=== PATIENT | female | born 1935 | race Hispanic/Latino ===

== ENCOUNTER 2017-12-22 13:00 | Emergency (ER) | payer OTHER ==
[2017-12-22 13:21] VITALS: BMI 23.8
[2017-12-22 13:27] VITALS: BP 158/78; PULSE 90; RESP 17; TEMP 98.6; O2SAT 96
--- NOTE | 2017-12-22 14:25 | RAD ---
PROCEDURE: Radiographs of the right elbow. HISTORY: trauma COMPARISON: No prior. FINDINGS: BONES: Normal. No fracture. JOINTS: Normal. No osteoarthritis. SOFT TISSUES: Normal. JOINT EFFUSION: None. OTHER FINDINGS: None. IMPRESSION: Unremarkable radiographs of the right elbow.
--- NOTE | 2017-12-22 14:30 | RAD ---
PROCEDURE: Radiographs of the Chest and Right Ribs. HISTORY: trauma COMPARISON: None available. TECHNIQUE: Frontal radiograph of the chest and multiple oblique radiographs of the right ribs were obtained. FINDINGS: RIGHT RIBS: Minimally displaced fractures are seen of the right 3rd 4th and 5th ribs. There is no pneumothorax. LUNGS: Clear. PLEURA: No pneumothorax or pleural fluid. CARDIOVASCULAR: Normal sized heart. No pulmonary vascular congestion. OTHER FINDINGS: None. IMPRESSION: Minimally displaced fractures are seen of the right 3rd 4th and 5th ribs. There is no pneumothorax.
--- NOTE | 2017-12-22 15:45 | ED PDOC ---
Arrival/HPI - General Chief Complaint: Medical Clearance Time Seen by Provider: 12/22/17 13:16 Historian: Patient - History of Present Illness Narrative History of Present Illness (Text): 12/22/17 13:25 A 82 year old female, whose past medical history includes COPD, emphysema, and pneumothorax, presents to the emergency department complaining of right rib pain , right elbow pain, and bilateral knee pain s/p injury. Patient reports while shopping, was injured after being hit by load of carts. Patient denies any syncopal episode, LOC, or any other complaints at this time. Also, patient mentions being concerned of puncturing right lung due to past medical history. No PMD Past Medical History - Provider Review Nursing Documentation Reviewed: Yes - Cardiac Hx Hypertension: Yes - Pulmonary Hx Respiratory Disorders: No - Neurological Hx Neurological Disorder: No - HEENT Hx HEENT Disorder: No - Renal Hx Renal Disorder: No - Endocrine/Metabolic Hx Endocrine Disorders: No - Hematological/Oncological Hx Blood Disorders: No - Integumentary Hx Dermatological Disorder: No - Musculoskeletal/Rheumatological Hx Musculoskeletal Disorders: No - Gastrointestinal Hx Gastrointestinal Disorders: No - Genitourinary/Gynecological Hx Genitourinary Disorders: No - Psychiatric Hx Psychophysiologic Disorder: No Hx Substance Use: No Family/Social History - Physician Review Nursing Documentation Reviewed: Yes Family/Social History: No Known Family HX Smoking Status: Never Smoked Hx Alcohol Use: No Hx Substance Use: No Allergies/Home Meds Allergies/Adverse Reactions: Allergies No Known Allergies Allergy (Verified 12/22/17 13:25) Review of Systems - Physician Review All systems were reviewed & negative as marked: Yes - Review of Systems Cardiovascular: absent: Syncope Musculoskeletal: Other (right ribs, right elbow, and b/l knee pain) Neurological: absent: Other (no LOC) Physical Exam Vital Signs Reviewed: Yes Vital Signs Temp Pulse Resp BP Pulse Ox 12/22/17 13:21 98.6 F 90 17 158/78 H 96 Temperature: Afebrile Blood Pressure: Hypertensive Pulse: Regular Respiratory Rate: Normal Appearance: Positive for: Well-Appearing Pain Distress: None Mental Status: Positive for: Alert and Oriented X 3 - Systems Exam Neck: Present: Normal Range of Motion Respiratory/Chest: Present: Decreased Breath Sounds (right side), Other (right chest wall tenderness) Abdomen: No: Tenderness, Distention, Peritoneal Signs Back: Present: Normal Inspection Upper Extremity: Present: Tenderness (right elbow) Lower Extremity: Present: Normal Inspection. No: Edema Neurological: Present: GCS=15, CN II-XII Intact, Speech Normal Skin: Present: Warm, Dry, Normal Color. No: Rashes Psychiatric: Present: Alert, Oriented x 3, Normal Insight, Normal Concentration Medical Decision Making ED Course and Treatment: 12/22/17 13:28 Impression: 82 year old female with right rib pain, right elbow pain, and bilateral knee pain s/p injury. Physical exam shows right chest wall tenderness , decreased breath sounds to right side; and right elbow tenderness. Plan: -- Bilateral Knee X-Ray -- Right Elbow X-Ray -- Right Ribs X-Ray -- Tylenol -- Reassess and disposition Progress Notes: Leaving Against Medical Advice (AMA): The patient is choosing to leave against medical advice. I have personally explained to the patient that choosing to do so may result in permanent bodily harm or . I have discussed at great length that without further evaluation and monitoring there may be unforeseen circumstances and/or deterioration causing permanent bodily harm or as a result of their choice. The patient is alert, oriented, and shows the mental capacity to make clear decisions regarding the patients health care at this time. The patient continues to wish to leave against medical advice. In light of the patients decision to leave against medical advice, follow-up has been arranged and the patient is aware of the importance to following up as instructed. The patient has been advised that they should return to the emergency room immediately if they change their mind at any time, or if their condition begins to change or worsen in any way. Patient refused any further work-up, declines admission, and wishes to leave. 12/22/2017 14:23 Right Elbow X-Ray IMPRESSION: Unremarkable radiographs of the right elbow. Dictator: Valentin Hall MD 12/22/2017 14:28 Right Ribs X-Ray IMPRESSION: Minimally displaced fractures are seen of the right 3rd 4th and 5th ribs. There is no pneumothorax. Dictator: Valentin Hall MD - RAD Interpretation Radiology Orders: 12/22/17 13:27 RIBS RIGHT & PA CHEST [RAD] Stat 12/22/17 13:28 ELBOW RIGHT 3 VIEWS ROUTINE [RAD] Stat KNEES BILATERAL [RAD] Stat - Medication Orders Current Medication Orders: Discontinued Medications Acetaminophen (Tylenol 325mg Tab) 975 mg PO STAT STA Stop: 12/22/17 13:30 Last Admin: 12/22/17 14:09 Dose: Not Given Non-Admin Reason: Patient Refused - Scribe Statement The provider has reviewed the documentation as recorded by the Izaiah Leavitt Provider Scribe Attestation: All medical record entries made by the Scribe were at my direction and personally dictated by me. I have reviewed the chart and agree that the record accurately reflects my personal performance of the history, physical exam, medical decision making, and the department course for this patient. I have also personally directed, reviewed, and agree with the discharge instructions and disposition. Disposition/Present on Arrival - Present on Arrival History of DVT/PE: No History of Uncontrolled Diabetes: No Urinary Catheter: No History of Decub. Ulcer: No History Surgical Site Infection Following: None - Disposition Diagnosis: Rib fracture Disposition: AGAINST MEDICAL ADVICE Discharge Instructions (ExitCare): Rib Fractures in Adults, Leaving Against Medical Advice Additional Instructions: you are refusing admission to the hospital. return to any er with any worsening symptoms or concerns. Prescriptions: Naproxen 500 mg PO BID PRN #14 tablet.dr MOLINA Reason: Pain, Mild (1-3) oxyCODONE/Acetaminophen [Percocet 5/325 mg Tab] 1 ea PO Q6 PRN #10 tab PRN Reason: Pain, Severe (8-10) Referrals: [facility] [Outside] - [place] up with [place] [facility] [place] [facility] [place] - Follow up with primary Mikey No, [Primary Care Provider] - Follow up with primary Frances Daniel MD [Staff Provider] - Follow up with primary Forms: [employer] (Bel[place]ian)
== END 2017-12-22 14:53 | disposition left against medical advice (07) ==
LOC: ED 13:00
DX: S22.41XA Multiple fractures of ribs, right side, initial encounter for closed fracture (principal); W22.8XXA Striking against or struck by other objects, initial encounter; Y92.512 Supermarket, store or market as the place of occurrence of the external cause

== ENCOUNTER 2018-01-04 14:31 | Emergency (ER) | payer SELFPAY ==
[2018-01-04 14:31] VITALS: BMI 23.8
[2018-01-04 14:41] VITALS: RESP 18; TEMP 98.2; O2SAT 95
[2018-01-04 15:30] LABS: BASO # 0.02 K/mm3 (0.0-2.0); BASO % 0.2 % (0.0-3.0); EOS # 0.1 (0.0-0.7); EOS % 0.6 % (1.5-5.0); GRAN # 6.62 (1.4-6.5); GRAN % 74.1 % (50.0-68.0); HEMOGLOBIN 11.7 g/dL (12.0-16.0); LYMPH # 1.6 (1.2-3.4); LYMPH % 18.3 % (22.0-35.0); MEAN CELL VOLUME 94.2 fl (80.0-105.0); MEAN PLATELET VOLUME 11.1 fl (7.0-11.0); MONO # 0.6 (0.1-0.6); MONO % 6.8 % (1.0-6.0); RBC 3.77 10^6/uL (3.5-6.1); RED CELL DISTRIBUTION WIDTH 14.4 % (11.5-14.5); WHITE BLOOD COUNT 8.9 10^3/ul (4.5-11.0)
[2018-01-04 15:40] LABS: BLOOD UREA NITROGEN 24 mg/dL (7-21); CALCIUM 9.1 mg/dL (8.4-10.5); GFR AFRICAN-AMERICAN > 60; GFR NON-AFRICAN AMERICAN > 60
--- NOTE | 2018-01-04 15:44 | ED PDOC ---
Arrival/HPI - General Chief Complaint: High Blood Pressure Time Seen by Provider: 01/04/18 14:44 Historian: Patient - History of Present Illness Narrative History of Present Illness (Text): 01/04/18 14:52 A 82 year old female, whose past medical history includes pneumothorax, anxiety , fluids in legs, and hypertension, presents to the emergency department complaining of high blood pressure today. Patient states she noted her blood pressure was elevated today. Patient reports associated palpitations. Patient states she has not been non-compliant with her hypertension medication. Patient denies any shortness of breath, chest pain, abdominal pain, nausea, vomiting, or any other complaints at this time. No PMD Symptom Onset: Gradual Symptom Course: Unchanged Activities at Onset: Light Context: Home Past Medical History - Provider Review Nursing Documentation Reviewed: Yes - Reproductive Menopause: No - Cardiac Hx Hypertension: Yes - Pulmonary Hx Respiratory Disorders: No - Neurological Hx Neurological Disorder: No - HEENT Hx HEENT Disorder: No - Renal Hx Renal Disorder: No - Endocrine/Metabolic Hx Endocrine Disorders: No - Hematological/Oncological Hx Blood Disorders: No - Integumentary Hx Dermatological Disorder: No - Musculoskeletal/Rheumatological Hx Musculoskeletal Disorders: No - Gastrointestinal Hx Gastrointestinal Disorders: No - Genitourinary/Gynecological Hx Genitourinary Disorders: No - Psychiatric Hx Psychophysiologic Disorder: No Hx Substance Use: No - Anesthesia Hx Anesthesia: No Hx Anesthesia Reactions: No Hx Malignant Hyperthermia: No Family/Social History - Physician Review Nursing Documentation Reviewed: Yes Family/Social History: No Known Family HX Smoking Status: Never Smoked Hx Alcohol Use: No Hx Substance Use: No Allergies/Home Meds Allergies/Adverse Reactions: Allergies No Known Allergies Allergy (Verified 12/22/17 13:25) Home Medications: Home Meds Medication Instructions Recorded Confirmed Candesartan Cilexetil [Atacand] 2 tab PO DAILY 01/04/18 01/04/18 Diazepam [Valium] 10 mg pe PO QID 01/04/18 01/04/18 hydroCHLOROthiazide [Hydrodiuril] 25 mg pe PO DAILY 01/04/18 01/04/18 Review of Systems - Physician Review All systems were reviewed & negative as marked: Yes - Review of Systems Constitutional: absent: Fevers Respiratory: absent: SOB Cardiovascular: Palpitations, Other (+high blood pressure). absent: Chest Pain Gastrointestinal: absent: Abdominal Pain, Vomiting Physical Exam Vital Signs Reviewed: Yes Vital Signs Temp Pulse Resp BP Pulse Ox 01/04/18 15:55 86 18 158/74 H 95 01/04/18 14:39 98.2 F 99 H 18 160/89 H 95 Temperature: Afebrile Blood Pressure: Hypertensive Pulse: Regular Respiratory Rate: Normal Appearance: Positive for: Well-Appearing, Non-Toxic, Comfortable Pain Distress: None Mental Status: Positive for: Alert and Oriented X 3 - Systems Exam Head: Present: Atraumatic, Normocephalic Pupils: Present: PERRL Extroacular Muscles: Present: EOMI Conjunctiva: Present: Normal Mouth: Present: Moist Mucous Membranes Neck: Present: Normal Range of Motion Respiratory/Chest: Present: Clear to Auscultation, Good Air Exchange. No: Respiratory Distress, Accessory Muscle Use Cardiovascular: Present: Regular Rate and Rhythm, Normal S1, S2. No: Murmurs Abdomen: Present: Other (right lower rib tenderness; no crepitus). No: Tenderness, Distention, Peritoneal Signs Upper Extremity: Present: Normal Inspection. No: Cyanosis, Edema Lower Extremity: Present: Normal Inspection. No: Edema Neurological: Present: GCS=15, CN II-XII Intact, Speech Normal Skin: Present: Warm, Dry, Normal Color. No: Rashes Psychiatric: Present: Alert, Oriented x 3, Normal Insight, Normal Concentration Medical Decision Making ED Course and Treatment: 01/04/18 14:56 Impression: 82 year old female with high blood pressure and palpitations. Physical exam shows right lower rib tenderness, no crepitus, no bruising. Differential Diagnosis included but are not limited to: Fracture vs. Pneumothorax Plan: -- EKG -- Right Ribs X-ray -- Labs -- Reassess and disposition Prior Visits: Notes and results from previous visits were reviewed. Patient was last seen in the emergency department on 12/22/2017 for rib fracture injury. Patient left ama. Progress Notes: EKG: Ordered, reviewed, and independently interpreted the EKG. Rate : 77 BPM Rhythm : NSR Interpretation : LVH. Comparison : No previous EKG for comparison. 01/04/2018 16:09 Ribs X-Ray IMPRESSION: healing posterior lateral 3rd, 4th, and right 5th ribs. No new acute fractures are identified. Dictator: Duc Soliz MD - Lab Interpretations Lab Results: 01/04/18 15:20 01/04/18 15:20 Lab Results 01/04/18 15:20: Sodium 142, Potassium 5.0, Chloride 105, Carbon Dioxide 27, Anion Gap 16, BUN 24 H, Creatinine 0.7, Est GFR ( Amer) > 60, Est GFR ( Non-Af Amer) > 60, Random Glucose 134 H, Calcium 9.1, Lactate Dehydrogenase 501 , Total Creatine Kinase 47, Troponin I < 0.01, NT-Pro-B Natriuret Pep 685 H 01/04/18 15:20: WBC 8.9, RBC 3.77, Hgb 11.7 L, Hct 35.5 L, MCV 94.2, MCH 31.0, MCHC 33.0, RDW 14.4, Plt Count 272, MPV 11.1 H, Gran % 74.1 H, Lymph % (Auto) 18.3 L, [place] % (Auto) 6.8 H, Eos % (Auto) 0.6 L, Baso % (Auto) 0.2, Gran # 6.62 H, Lymph # (Auto) 1.6, [place] # (Auto) 0.6, Eos # (Auto) 0.1, Baso # (Auto) 0.02 I have reviewed the lab results: Yes - RAD Interpretation Radiology Orders: 01/04/18 14:56 RIBS RIGHT & PA CHEST [RAD] Stat Helper [employer] Hanging: Radiologist - EKG Interpretation Interpreted by ED Physician: Yes Type: 12 lead EKG - Scribe Statement The provider has reviewed the documentation as recorded by the Izaiah Leavitt Provider Scribe Attestation: All medical record entries made by the Izaiah were at my direction and personally dictated by me. I have reviewed the chart and agree that the record accurately reflects my personal performance of the history, physical exam, medical decision making, and the department course for this patient. I have also personally directed, reviewed, and agree with the discharge instructions and disposition. Disposition/Present on Arrival - Present on Arrival History of DVT/PE: No History of Uncontrolled Diabetes: No Urinary Catheter: No History of Decub. Ulcer: No History Surgical Site Infection Following: None - Disposition Diagnosis: Rib pain on right side Disposition: HOME/ ROUTINE Disposition Time: 16:57 Condition: IMPROVED Discharge Instructions (ExitCare): Chest Pain (ED) Additional Instructions: Ms Richey, thank you for letting us take care of you today. Your provider was Dr. Read. You were treated for Rib Pain. The emergency medical care you received today was directed at your acute symptoms. If you were prescribed any medication, please fill it and take as directed. It may take several days for your symptoms to resolve. Return to the Emergency Department if your symptoms worsen, do not improve, or if you have any other problems. Please contact your doctor or call one of the physicians/clinics you have been referred to that are listed on the Patient Visit Information form that is included in your discharge packet. Bring any paperwork you were given at discharge with you along with any medications you are taking to your follow up visit. Our treatment cannot replace ongoing medical care by a primary care provider (PCP) outside of the emergency department. Thank you for allowing the [facility] team to be part of your care today. If you had an X-Ray or CT scan: A Radiologist will review the ED reading if any change in treatment is needed we will contact you. If you had a blood, urine, or wound culture: It will take several days for the results, if any change in treatment is needed we will contact you. If you had an STI test: It will take 48 hours for the results. Please call after 1 week if you have not heard back. Prescriptions: diaZEpam [Valium] 5 mg PO Q8 #12 tab hydroCHLOROthiazide [Hydrodiuril] 25 mg PO DAILY #30 tab Referrals: PCP,NO [Primary Care Provider] - Follow up with primary Forms: [email or web address] ([place]), WORK NOTE
[2018-01-04 15:52] LABS: B-TYPE NATRIURETIC PEPTIDE 685 pg/mL (0-450); TROPONIN I < 0.01 ng/mL
[2018-01-04 15:55] VITALS: BP 158/74; PULSE 86
--- NOTE | 2018-01-04 16:10 | RAD ---
PROCEDURE: Radiographs of the Chest and Right Ribs. HISTORY: right rib pain r/o fx COMPARISON: 12/22/2017 right rib radiographs TECHNIQUE: Frontal radiograph of the chest and multiple oblique radiographs of the right ribs were obtained. FINDINGS: RIGHT RIBS: Healing fractures posterior lateral 3rd 4th and 5th ribs. No new/ acute fractures. LUNGS: Clear. PLEURA: No pneumothorax or pleural fluid. CARDIOVASCULAR: No radiographic findings to suggest acute or significant cardiovascular disease. New OTHER FINDINGS: None. IMPRESSION: Healing posterior lateral 3rd, 4th and right 5th ribs. No new, acute fractures are identified.
--- NOTE | 2018-01-05 10:13 | CARD ---
APPROVED REPORT EKG Measurement Heart [id number] 118P40 [id number] <Conclusion> Normal sinus rhythm with sinus arrhythmia Minimal voltage criteria for LVH, may be normal variant Peaked T waves V 2 - 4
== END 2018-01-04 16:40 | disposition home or self-care (01) ==
LOC: ED 14:31
DX: R07.89 Other chest pain (principal); I10 Essential (primary) hypertension

== ENCOUNTER 2018-06-26 04:08 | Emergency (ER) | payer SELFPAY ==
[2018-06-26 04:18] VITALS: BMI 22.6
--- NOTE | 2018-06-26 05:13 | ED PDOC ---
Arrival/HPI - General Chief Complaint: Psychiatric Evaluation Time Seen by Provider: 06/26/18 04:49 Historian: Patient, Police - History of Present Illness Narrative History of Present Illness (Text): 06/26/18 05:13 Sindy Richey is an 83 year old female, whose past medical history includes COPD, emphysema, and pneumothoax, who presents to the Emergency department brought in by EMS and [facility] for bizarre behavior. As per police, patient called multiple times complaining of issues with her home. Patient reports she allegedly is being [place]ed [place] Patient states that there are wires coming out of her house that are connected to other trailers. Patient denies any fever, chills, chest pain, shortness of breath, nausea, vomiting, diarrhea, urinary symptoms, back pain, neck pain, headache, dizziness, or any other complaints. Symptom Onset: Gradual Symptom Course: Unchanged Activities at Onset: Light Context: Home Past Medical History - Provider Review Nursing Documentation Reviewed: Yes - Infectious Disease Hx of Infectious Diseases: None - Reproductive Menopause: Yes - Cardiac Hx Hypertension: Yes - Pulmonary Hx Respiratory Disorders: No - Neurological Hx Neurological Disorder: No - HEENT Hx HEENT Disorder: No - Renal Hx Renal Disorder: No - Endocrine/Metabolic Hx Endocrine Disorders: No - Hematological/Oncological Hx Blood Disorders: No - Integumentary Hx Dermatological Disorder: No - Musculoskeletal/Rheumatological Hx Musculoskeletal Disorders: No - Gastrointestinal Hx Gastrointestinal Disorders: No - Genitourinary/Gynecological Hx Genitourinary Disorders: No - Psychiatric Hx Psychophysiologic Disorder: No Hx Substance Use: No - Anesthesia Hx Anesthesia: No Hx Anesthesia Reactions: No Hx Malignant Hyperthermia: No Family/Social History - Physician Review Nursing Documentation Reviewed: Yes Family/Social History: Unknown Family HX Smoking Status: Never Smoked Hx Alcohol Use: No Hx Substance Use: No Allergies/Home Meds Allergies/Adverse Reactions: Allergies No Known Allergies Allergy (Verified 06/26/18 04:21) Home Medications: Home Meds Medication Instructions Recorded Confirmed Candesartan Cilexetil [Atacand] 2 tab PO DAILY 01/04/18 01/04/18 hydroCHLOROthiazide [Hydrodiuril] 25 mg pe PO DAILY 01/04/18 01/04/18 Review of Systems - Physician Review All systems were reviewed & negative as marked: Yes - Review of Systems Constitutional: Normal. absent: Fevers Eyes: Normal ENT: Normal Respiratory: Normal. absent: SOB, Cough Cardiovascular: Normal. absent: Chest Pain Gastrointestinal: Normal. absent: Abdominal Pain, Diarrhea, Nausea, Vomiting Genitourinary Female: Normal. absent: Dysuria, Frequency, Hematuria, Urine Output Changes Musculoskeletal: Normal. absent: Back Pain, Neck Pain Skin: Normal. absent: Rash Neurological: Normal. absent: Headache, Dizziness Endocrine: Normal Hemo/Lymphatic: Normal Psychiatric: Other (+bizarre behavior) Physical Exam Vital Signs Reviewed: Yes Temperature: Afebrile Blood Pressure: Normal Pulse: Regular Respiratory Rate: Normal Appearance: Positive for: Well-Appearing, Non-Toxic, Comfortable Pain Distress: None Mental Status: Positive for: Alert and Oriented X 3 - Systems Exam Head: Present: Atraumatic, Normocephalic Pupils: Present: PERRL Extroacular Muscles: Present: EOMI Conjunctiva: Present: Normal Mouth: Present: Moist Mucous Membranes Neck: Present: Normal Range of Motion Respiratory/Chest: Present: Clear to Auscultation, Good Air Exchange. No: Respiratory Distress, Accessory Muscle Use Cardiovascular: Present: Regular Rate and Rhythm, Normal S1, S2. No: Murmurs Abdomen: No: Tenderness, Distention, Peritoneal Signs Back: Present: Normal Inspection Upper Extremity: Present: Normal Inspection. No: Cyanosis, Edema Lower Extremity: Present: Normal Inspection. No: Edema Neurological: Present: GCS=15, CN II-XII Intact, Speech Normal Skin: Present: Warm, Dry, Normal Color. No: Rashes Psychiatric: Present: Alert, Oriented x 3, Normal Insight, Normal Concentration Medical Decision Making ED Course and Treatment: 06/26/18 05:13 Impression: 83 year old female brought in for bizarre behavior. Plan: -- EKG -- Chest X-ray -- Labs, alcohol level -- Urine drug screen -- Reassess and disposition Prior Visits: Notes and results from previous visits were reviewed. Progress Notes: Reviewed EKG, NSR at 88 bpm. Occasional PVC. No acute ST/T changes. 06/26/18 06:[address] Moya, pending medical clearace, PES evaluation, and disposition. - RAD Interpretation Radiology Orders: 06/26/18 04:49 CHEST PORTABLE [RAD] Stat - EKG Interpretation Interpreted by ED Physician: Yes Type: 12 lead EKG - Scribe Statement The provider has reviewed the documentation as recorded by the Scribe Ashli Tobin Provider Scribe Attestation: All medical record entries made by the Scribe were at my direction and personally dictated by me. I have reviewed the chart and agree that the record accurately reflects my personal performance of the history, physical exam, medical decision making, and the department course for this patient. I have also personally directed, reviewed, and agree with the discharge instructions and disposition. Disposition/Present on Arrival - Present on Arrival Any Indicators Present on Arrival: No History of DVT/PE: No History of Uncontrolled Diabetes: No Urinary Catheter: No History of Decub. Ulcer: No History Surgical Site Infection Following: None - Disposition Have Diagnosis and Disposition been Completed?: No Diagnosis: Psychiatric disturbance Disposition Time: 07:00 Condition: STABLE Forms: [employer] (Citizen [place])
[2018-06-26 06:02] LABS: HEMOGLOBIN 11.9 g/dL (12.0-16.0); RBC 3.84 10^6/uL (3.5-6.1); RED CELL DISTRIBUTION WIDTH 14.7 % (11.5-14.5); WHITE BLOOD COUNT 6.9 10^3/uL (4.5-11.0)
[2018-06-26 06:35] LABS: ALB/GLOB RATIO 1.5 (1.1-1.8); ALBUMIN 4.4 g/dL (3.0-4.8); ALT/SGPT 24 U/L (7-56); AST/SGOT 24 U/L (14-36); BLOOD UREA NITROGEN 19 mg/dL (7-21); CALCIUM 9.2 mg/dL (8.4-10.5); GFR NON-AFRICAN AMERICAN > 60
[2018-06-26 07:12] LABS: BARBITURATES, UR NEGATIVE (NEGATIVE); BENZODIAZEPINES, UR POSITIVE (NEGATIVE); OPIATES, UR NEGATIVE (NEGATIVE); PHENCYCLIDINE, UR NEGATIVE (NEGATIVE)
[2018-06-26 09:53] LABS: URINE BILIRUBIN NEGATIVE (NEGATIVE); URINE BLOOD NEGATIVE (NEGATIVE); URINE GLUCOSE (UA) NEGATIVE (NEGATIVE); URINE LEUKOCYTE ESTERASE TRACE Leu/uL (NEGATIVE); URINE PROTEIN NEGATIVE mg/dL (<30 mg/dL); URINE UROBILINOGEN 0.2 E.U./dL (<1 E.U./dL)
[2018-06-26 09:55] LABS: URINE APPEARANCE SLIGHT-CLOUDY (CLEAR); URINE COLOR YELLOW (YELLOW)
[2018-06-26 10:17] LABS: URINE RBC NEGATIVE /hpf (0-2)
--- NOTE | 2018-06-26 10:50 | CARD ---
APPROVED REPORT Date of service: 06/26/2018 EKG Measurement Heart [id number] MN [id number] <Conclusion> Sinus rhythm with 1 PVC LVH T waves less peaked V 2 - 4 Mildly prolonged QTc
--- NOTE | 2018-06-26 11:04 | ED PDOC ---
Physical Exam Vital Signs Temp Pulse Resp BP Pulse Ox 06/26/18 10:15 98 F 75 19 125/72 99 06/26/18 07:06 82 18 179/77 H 95 Medical Decision Making ED Course and Treatment: 06/26/18 07:[address] Pugh. Currently pending medical clearance, PES evaluation, and disposition. 06/26/18 11:02 Patient is medically cleared. 06/27/18 07:22 endorsed to shift supervisor [place] [facility] [place] pt observed ambulatory in er, taking po no medical complaint. - Lab Interpretations Lab Results: 06/26/18 05:11 06/26/18 06:10 Lab Results 06/26/18 09:26: Urine Color Yellow, Urine Appearance Slight-cloudy, Urine pH 6.0, Ur Specific [place] 1.020, Urine Protein Negative, Urine Glucose (UA) Negative, Urine Ketones Negative, Urine Blood Negative, Urine Nitrate Negative, Urine Bilirubin Negative, Urine Urobilinogen 0.2, Ur Leukocyte Esterase Trace H, Urine RBC Negative, Urine WBC 2 - 5, Ur Epithelial Cells 1 - 3 06/26/18 06:10: Alcohol, Quantitative < 10 06/26/18 06:10: Sodium 142, Potassium 3.9, Chloride 110 H, Carbon Dioxide 24, A [place] 12, BUN 19, Creatinine 0.6 L, Est GFR ( Amer) > 60, Est GFR (Non-Af Amer) > 60, Random Glucose 123 H, Calcium 9.2, Total Bilirubin 1.4 H, AST 24, ALT 24, Alkaline Phosphatase 81, Total Protein 7.4, Albumin 4.4, Globulin 3.0, Albumin/Globulin Ratio 1.5 06/26/18 05:40: Urine Opiates Screen Negative, Urine Methadone Screen Negative, Ur Barbiturates Screen Negative, Ur Phencyclidine Scrn Negative, Ur Amphetamines Screen Negative, U Benzodiazepines Scrn Positive H, U Oth Cocaine Metabols Negative, U Cannabinoids Screen Negative 06/26/18 05:11: WBC 6.9 D, RBC 3.84, Hgb 11.9 L, Hct 36.1, MCV 94.0, MCH 31.0, MCHC 33.0, RDW 14.7 H, Plt Count 205, MPV 12.0 H - RAD Interpretation Radiology Orders: 06/26/18 04:49 CHEST PORTABLE [RAD] Stat - Scribe Statement The provider has reviewed the documentation as recorded by the Scribe Kyle Leavitt Provider Scribe Attestation: All medical record entries made by the Scribe were at my direction and personally dictated by me. I have reviewed the chart and agree that the record accurately reflects my personal performance of the history, physical exam, medical decision making, and the department course for this patient. I have also personally directed, reviewed, and agree with the discharge instructions and disposition. Disposition/Present on Arrival - Present on Arrival Any Indicators Present on Arrival: No History of DVT/PE: No History of Uncontrolled Diabetes: No Urinary Catheter: No History of Decub. Ulcer: No History Surgical Site Infection Following: None - Disposition Have Diagnosis and Disposition been Completed?: Yes Diagnosis: Psychiatric disturbance Disposition: HOME/ ROUTINE Disposition Time: 19:00 Condition: STABLE Discharge Instructions (ExitCare): Acute Psychosis (DC) Additional Instructions: All medical record entries made by the Scribe were at my direction and personally dictated by me. I have reviewed the chart and agree that the record accurately reflects my personal performance of the history, physical exam, medical decision making, and the department course for this patient. I have also personally directed, reviewed, and agree with the discharge instructions and disposition. Referrals: [facility] [place] [facility] [place] - Follow up with primary Tanya Cat MD [Medical Doctor] - Follow up with primary Forms: [employer] (Latvian)
[2018-06-26 19:25] VITALS: TEMP 97.9
--- NOTE | 2018-06-26 20:30 | ED PDOC ---
Physical Exam Vital Signs Temp Pulse Resp BP Pulse Ox 06/26/18 19:30 88 16 132/76 100 06/26/18 18:00 97.9 F 71 18 127/56 L 98 06/26/18 14:00 97.3 F L 75 18 129/53 L 98 06/26/18 10:15 98 F 75 19 125/72 99 06/26/18 08:00 98.3 F 75 19 126/59 L 99 06/26/18 07:06 82 18 179/77 H 95 Temperature: Afebrile Blood Pressure: Normal Pulse: Regular Respiratory Rate: Normal Appearance: Positive for: Well-Appearing, Non-Toxic, Comfortable Mental Status: Positive for: Alert and Oriented X 3 Medical Decision Making ED Course and Treatment: Signout received from Dr. Moya with patient pending PES evaluation. Patient has been medically cleared. 06/27/18 03:56 Patient seen and evaluated by PES and deemed ineligible for psychiatric hospitalization at this time. Patient is stable for discharge. - Lab Interpretations Lab Results: 06/26/18 05:11 06/26/18 06:10 Lab Results 06/26/18 09:26: Urine Color Yellow, Urine Appearance Slight-cloudy, Urine pH 6.0, Ur Specific [place] 1.020, Urine Protein Negative, Urine Glucose (UA) Negative, Urine Ketones Negative, Urine Blood Negative, Urine Nitrate Negative, Urine Bilirubin Negative, Urine Urobilinogen 0.2, Ur Leukocyte Esterase Trace H, Urine RBC Negative, Urine WBC 2 - 5, Ur Epithelial Cells 1 - 3 06/26/18 06:10: Alcohol, Quantitative < 10 06/26/18 06:10: Sodium 142, Potassium 3.9, Chloride 110 H, Carbon Dioxide 24, Anion Gap 12, BUN 19, Creatinine 0.6 L, Est GFR ( Amer) > 60, Est GFR (Non-Af Amer) > 60, Random Glucose 123 H, Calcium 9.2, Total Bilirubin 1.4 H, AST 24, ALT 24, Alkaline Phosphatase 81, Total Protein 7.4, Albumin 4.4, Globulin 3.0, Albumin/Globulin Ratio 1.5 06/26/18 05:40: Urine Opiates Screen Negative, Urine Methadone Screen Negative, Ur Barbiturates Screen Negative, Ur Phencyclidine Scrn Negative, Ur Amphetamines Screen Negative, U Benzodiazepines Scrn Positive H, U Oth Cocaine Metabols Negative, U Cannabinoids Screen Negative 06/26/18 05:11: WBC 6.9 D, RBC 3.84, Hgb 11.9 L, Hct 36.1, MCV 94.0, MCH 31.0, MCHC 33.0, RDW 14.7 H, Plt Count 205, MPV 12.0 H - RAD Interpretation Radiology Orders: 06/26/18 04:49 CHEST PORTABLE [RAD] Stat - Medication Orders Current Medication Orders: Discontinued Medications Lorazepam (Ativan) 0.5 mg PO STAT STA; Protocol Stop: 06/26/18 15:14 Last Admin: 06/26/18 15:32 Dose: Not Given Non-Admin Reason: Patient Refused Risperidone (Risperdal Tab) 0.25 mg PO STAT STA; Protocol Stop: 06/26/18 15:14 Last Admin: 06/26/18 15:32 Dose: Not Given Non-Admin Reason: Patient Refused Disposition/Present on Arrival - Present on Arrival Any Indicators Present on Arrival: No History of DVT/PE: No History of Uncontrolled Diabetes: No Urinary Catheter: No History of Decub. Ulcer: No History Surgical Site Infection Following: None - Disposition Have Diagnosis and Disposition been Completed?: Yes Diagnosis: Psychiatric disturbance Disposition Time: 04:00 Patient Plan: Discharge Patient Problems: Current Active Problems Problem Status Onset Psychiatric disturbance Acute Condition: STABLE Additional Instructions: All medical record entries made by the Scribe were at my direction and personally dictated by me. I have reviewed the chart and agree that the record accurately reflects my personal performance of the history, physical exam, medical decision making, and the department course for this patient. I have also personally directed, reviewed, and agree with the discharge instructions and disposition. Referrals: Tanya Cat MD [Medical Doctor] - Follow up with primary [facility] [place] [facility] [place] - Follow up with primary Forms: [employer] (French)
[2018-06-27 04:45] VITALS: BP 126/79; PULSE 78; RESP 12; O2SAT 99
== END 2018-06-27 04:43 | disposition home or self-care (01) ==
LOC: ED 04:08
DX: F99 Mental disorder, not otherwise specified (principal); I10 Essential (primary) hypertension; J44.9 Chronic obstructive pulmonary disease, unspecified
CPT/HCPCS: 71045; 80053; 81001; 85027; 87086; 90791; 93005; 99285; G0480